=== PATIENT | female | born 1985 | race Caucasian/White ===

== ENCOUNTER → 2020-05-03 08:46 | Outpatient (CLI) | payer OTHER, SELFPAY ==
--- NOTE | ~2020-05-03 | MR_ITS ---
EXAMINATION: MR knee RT wo con DATE: 05/03/2020 09:52 INDICATION: Medial right knee pain post twisting injury TECHNIQUE: Magnetic resonance imaging (MRI) of the right knee was performed without intravenous contr ast. Sequences included coronal PD-weighted FSE, coronal PD-weighted FS FSE, sagittal T2-weighted FS E, sagittal PD-weighted FS FSE and axial PD weighted fat saturated FSE. COMPARISON: 10/02/2019 FINDINGS: Medial compartment: Medial meniscus is normal. Articular cartilage is normal. Lateral compartment: Lateral meniscus is normal. Articular cartilage is normal. Patellofemoral compartment: Again seen a sagittally oriented linear low signal at the caudal aspect of the trochlear groove likel y a deep chondral fissure with minimal underlying cortical irregularity and tiny focus of subarticula r edema. Remaining cartilage in the patellofemoral compartment is normal. Ligaments and tendons: Anterior and posterior cruciate ligaments are normal. The medial collateral ligament and fibular michelle ateral ligament complex are normal. The extensor mechanism is normal. The visualized medial and later al hamstring tendons as well as the iliotibial band are normal. Fluid: Physiologic amount of fluid in the joint space. No loose osteochondral bodies identified. 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 Otherwi se normal marrow signal with no fracture or pathologic marrow replacing process. IMPRESSION: 1. No interval change in a likely deep chondral fissure with minimal degenerative subarticular change s at the caudal aspect of the trochlear groove. Otherwise unremarkable right knee MRI with no joint e ffusion and with normal menisci and stabilizing ligaments. Reviewed, dictated and finalized at location A. IMPRESSION: 1. No interval change in a likely deep chondral fissure with minimal degenerati ve subarticular changes at the caudal aspect of the trochlear groove. Otherwise unremarkable right knee MRI with no joint effusion and with normal menisci and stabilizing ligaments.
== END ==
PROVIDERS: PCP Family Medicine
DX: M25.561 Pain in right knee (principal)
CPT/HCPCS: 73721

== ENCOUNTER 2020-09-22 16:56 | Outpatient (RCR) | payer BC, SELFPAY | END 2020-12-21 23:59 | disposition home or self-care (01) | LOC: ANHLAB 16:56 | PROVIDERS: PCP Family Medicine; Visit Provider Obstetrics & Gynecology | DX: O20.0 Threatened abortion (principal); O36.0130 Maternal care for anti-D [Rh] antibodies, third trimester, not applicable or unspecified; Z3A.00 Weeks of gestation of pregnancy not specified | CPT/HCPCS: 36415; 85461 ==

== ENCOUNTER 2021-03-23 07:31 | Outpatient (CLI) | payer BC, SELFPAY ==
--- NOTE | 2021-03-25 12:42 | WPDHOLTEREM ---
Holter/Event Monitor Holter/Event Monitor Date of procedure: 03/23/21 Holter/Event Procedure: 24 Hr Holter Monitor Indications: Tachycardia Conclusion: 1. 24 hour holter monitor on 03/23/21. 2. Underlying rhythm is sinus rhythm. HR range 50-143 bpm; average HR 85 bpm. 3. No premature supraventricular complexes. No supraventricular tachycardia. 4. No premature ventricular complexes. No ventricular tachycardia. 5. No sinoatrial or atrioventricular blocks. No significant pauses greater than 2 seconds. 6. No symptoms available for correlation.
== END 2021-03-23 07:32 | disposition home or self-care (01) ==
LOC: ANHCARD 07:35
PROVIDERS: PCP Nurse Practitioner Family; Visit Provider Obstetrics & Gynecology
DX: R00.0 Tachycardia, unspecified (principal)
CPT/HCPCS: 93225; 93226

== ENCOUNTER 2021-08-11 01:57 | Inpatient (IN) | payer BC, SELFPAY ==
[2021-08-11] VITALS (163 sets, daily range): BP systolic 60–136; BP diastolic 32–102; PULSE 60–134; RESP 16; TEMP 36.8–37.2; O2SAT 98–100; BMI 27.7
--- NOTE | 2021-08-11 01:57 | LDADM ---
This patient, Albertina Flores, was admitted to Labor/Delivery/Recovery 105 on 08/11/21 at 01:57. Plans for labor, pain management and were discussed with patient. Patient/family oriented to hospital policies and general routines including ID bracelet, bed and alarms, visiting hours, pain management, procedures, bathroom and other care routines, personal items, smoking policy, room service/diet and guest tray routines, security routines, and visiting hours. Patient/Family are encouraged to report perceived risks to care and to ask questions if they do not understand what they are told or what they should do. See OBIX for further documentation.
--- OUTSIDE RECORDS SUMMARY | 2021-08-11 02:08 | XMS_ITS | Encounter Summary ---
:1985 Author Care Team Providers Name Role Phone Demetria Dukes [facility] Primary Care Provider [phone] Reason for Visit None recorded. Assessment and Plan 1. Uterine size for dates discre pancy ? US, obstetric, follow-up Discussion Note: None recorded.Patient educational handouts: No information available. Plan of Care Reminders Provider Appointments Well on or around Katherin Olimpia Gill, Woman-est 10/29/2021 CNM Lab None ? ? recorded. Referral None ? ? recorded. Procedures None ? ? recorded. Surgeries None ? ? recorded. Imaging US, 05/25/2021 [place] Obstetric, Follow-up Medications Name Start Date ? ? Claritin ? ? Medications Administered None recorded. Vitals None recorded. Results Lab Results None recorded. Allergies Code Code System Name Reaction Severity Onset NKDA ? ? ? Notes: NO KNOWN ALLERGIES (Activ e) Comment: Location: [facility]; Problems Name Status Onset Date Source ? 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
--- OUTSIDE RECORDS SUMMARY | 2021-08-11 02:08 | XMS_ITS | Encounter Summary ---
:1985 Author Care Team Providers Name Role Phone Demetria Dukes [facility] Primary Care Provider [phone] Reason for Visit OB visit OB [id number] EDC 08/04/2021 LMP 10/28/2020 Assessment and Plan Assessment Note Patient is __32_weeks . Dis cussed plan. 1. Routine care Discussion Note: None recorded.Patient educational handouts: No information available. Plan of Care Reminders Provider Appointments Well on or around Katherin Gill, Woman-est 10/29/2021 CNM Lab None ? ? recorded. Referral None ? ? recorded. Procedures None ? ? recorded. Surgeries None ? ? recorded. Imaging None ? ? recorded. Medications Name Start Date ? ? Claritin ? ? Medications Administered None recorded. Vitals Height Weight BMI Blood Pressure 5 ft 5.5 in 160 lbs 26.2 kg/m2 118/72 mm[Hg] Results Lab Results None recorded. Allergies Code Code System Name Reaction Severity Onset NKDA ? ? ? Notes: NO KNOWN ALLERGIES (Activ e) Comment: Location: [facility]; Problems
--- OUTSIDE RECORDS SUMMARY | 2021-08-11 02:08 | XMS_ITS | Encounter Summary ---
:1985 Author Care Team Providers Name Role Phone Demetria Dukes [facility] Primary Care Provider [phone] Reason for Visit OB visit Assessment and Plan Assessment Note Patient is ___weeks . Discu ssed plan. 1. Routine care Discussion Note: None recorded.Patient educational handouts: No information available. Plan of Care Reminders Provider Appointments Well on or around Katherin Camarenagle, Woman-est 10/29/2021 CNM Lab None ? ? recorded. Referral None ? ? recorded. Procedures None ? ? recorded. Surgeries None ? ? recorded. Imaging None ? ? recorded. Medications Name Start Date ? ? Claritin ? ? Medications Administered None recorded. Vitals Height Weight BMI Blood Pressure 5 ft 5.5 in 164 lbs 26.9 kg/m2 108/71 mm[Hg] Results Lab Results None recorded. Allergies Code Code System Name Reaction Severity Onset NKDA ? ? ? Notes: NO KNOWN ALLERGIES (Activ e) Comment: Location: [facility]; Problems Name Status Onset Date Source ?
--- OUTSIDE RECORDS SUMMARY | 2021-08-11 02:08 | XMS_ITS | Encounter Summary ---
:1985 Author Care Team Providers Name Role Phone Demetria Dukes [facility] Primary Care Provider [phone] Reason for Visit OB visit OB [id number] EDC 08/04/2021 LMP 10/28/2020 Assessment and Plan Assessment Note Patient is __40_weeks . Dis cussed plan. 1. Routine care [...] BMI Blood Pressure 5 ft 5.5 in 170 lbs 27.9 kg/m2 119/53 mm[Hg] Results Lab Results None recorded. Allergies Code Code System Name Reaction Severity Onset NKDA ? ? ? Notes: NO KNOWN ALLERGIES (Activ e) Comment: Location: [facility]; Problems
--- OUTSIDE RECORDS SUMMARY | 2021-08-11 02:08 | XMS_ITS | Encounter Summary ---
:1985 Author Care Team Providers Name Role Phone Demetria Dukes [facility] Primary Care Provider [phone] Reason for Visit OB visit OB [id number] EDC 08/04/2021 LMP 10/28/2020 Assessment and Plan Assessment Note Patient is _39__weeks . Dis cussed plan. 1. Routine care [...] BMI Blood Pressure 5 ft 5.5 in 169 lbs 27.7 kg/m2 119/76 mm[Hg] Results Lab Results None recorded. Allergies Code Code System Name Reaction Severity Onset NKDA ? ? ? Notes: NO KNOWN ALLERGIES (Activ e) Comment: Location: [facility]; Problems
--- OUTSIDE RECORDS SUMMARY | 2021-08-11 02:08 | XMS_ITS | Encounter Summary ---
:1985 Author Care Team Providers Name Role Phone Demetria Dukes [facility] Primary Care Provider [phone] Reason for Visit OB visit OB [id number] EDC 08/04/2021 LMP 10/28/2020 Assessment and Plan Assessment Note Patient is _36__weeks . Dis cussed plan. 1. Routine care [...] BMI Blood Pressure 5 ft 5.5 in 167 lbs 27.4 kg/m2 107/73 mm[Hg] Results Lab Results None recorded. Allergies Code Code System Name Reaction Severity Onset NKDA ? ? ? Notes: NO KNOWN ALLERGIES (Activ e) Comment: Location: [facility]; Problems
--- OUTSIDE RECORDS SUMMARY | 2021-08-11 02:08 | XMS_ITS | Encounter Summary ---
:1985 Author Care Team Providers Name Role Phone Demetria Dukes [facility] Primary Care Provider [phone] Reason for Visit OB visit OB [id number] EDC 08/04/2021 LMP 10/28/2020 Assessment and Plan Assessment Note Patient is __28_weeks . Dis cussed plan. 1. Routine care [...] BMI Blood Pressure 5 ft 5.5 in 154 lbs 25.2 kg/m2 110/71 mm[Hg] Results Lab Results None recorded. Allergies Code Code System Name Reaction Severity Onset NKDA ? ? ? Notes: NO KNOWN ALLERGIES (Activ e) Comment: Location: [facility]; Problems
--- OUTSIDE RECORDS SUMMARY | 2021-08-11 02:08 | XMS_ITS | Encounter Summary ---
:1985 Author Care Team Providers Name Role Phone Demetria Dukes [facility] Primary Care Provider [phone] Reason for Visit OB visit [id number] Assessment and Plan Assessment Note Patient is [...] ft 5.5 in 169 lbs 27.7 kg/m2 122/70 mm[Hg] Results Lab Results None recorded. Allergies Code Code System Name Reaction Severity Onset NKDA ? ? ? Notes: NO KNOWN ALLERGIES (Activ e) Comment: Location: [facility]; Problems Name Status Onset
--- OUTSIDE RECORDS SUMMARY | 2021-08-11 02:08 | XMS_ITS | Encounter Summary ---
:1985 Author Care Team Providers Name Role Phone Demetria Dukes [facility] Primary Care Provider [phone] Reason for Visit None recorded. Assessment and Plan 1. Reduced movement ? non-stress test Discussion Note: None recorded.Patient educational handouts: No information available. Plan of Care Reminders Provider Appointments Well on or around Katherin Gill, Woman-est 10/29/2021 CNM Lab None ? ? recorded. Referral None ? ? recorded. Procedures None ? ? recorded. Surgeries None ? ? recorded. Imaging 05/13/2021 [place] Non-stress Test Medications Name Start Date ? ? Claritin ? ? Medications Administered None recorded. Vitals None recorded. Results Lab Results None recorded. Allergies Code Code System Name Reaction Severity Onset NKDA ? ? ? Notes: NO KNOWN ALLERGIES (Activ e) Comment: Location: [facility]; Problems Name Status Onset Date Source ? Human Papillomavirus Deoxyribonucleic Active 10/11/2019 History Acid Sunitha
--- OUTSIDE RECORDS SUMMARY | 2021-08-11 02:08 | XMS_ITS | Encounter Summary ---
:1985 Author Care Team Providers Name Role Phone Demetria Dukes [facility] Primary Care Provider [phone] Reason for Visit None recorded. Assessment and Plan 1. Post-term ? non-stress test Discussion Note: None recorded.Patient educational handouts: No information available. Plan of Care Reminders Provider Appointments Well on or around Katherin Gill, Woman-est 10/29/2021 CNM Lab None ? ? recorded. Referral None ? ? recorded. Procedures None ? ? recorded. Surgeries None ? ? recorded. Imaging 08/05/2021 [place] Non-stress Test Medications Name Start Date ? ? Claritin ? ? Medications Administered None recorded. Vitals None recorded. Results Lab Results None recorded. Allergies Code Code System Name Reaction Severity Onset NKDA ? ? ? Notes: NO KNOWN ALLERGIES (Activ e) Comment: Location: [facility]; Problems Name Status Onset Date Source ? Human Papillomavirus Deoxyribonucleic Active 10/11/2019 History Acid Test P
--- OUTSIDE RECORDS SUMMARY | 2021-08-11 02:08 | XMS_ITS ---
:1985 Author Care Team Providers Name Role Phone OSMAR BLAKE [facility]- Primary Care Provider [phone] Allergies Code Code System Name Reaction Severity Status Onset NKDA ? Notes: NO KNOWN ALLERGIES (Activ e) Comment: Location: [facility]; Medications Name Status Start Date Stop Date ? ? amitriptyline hydrochloride 25 Completed ? 02/25/2020 mg tabs azithromycin 500 mg tabs Completed ? 2019 Claritin Active ? Not available clindamycin 1.2 % (1 % base)-benzoyl peroxide 5 % topical gel Co mpleted ? 07/10/2021 APPLY TOPICALLY TO THE AFFECTED AREA DAILY TO FACE DAILY doxycycline hyclate 100 mg tabs Completed ? 02/25/2020Februaryl fe tab 10/01 Completed ? 02/25/2020 FE 10/01 (28) 1 mg-20 mcg (21)/75 mg (7) tablet Completed 10/11/2019 10/28/2020 take 1 tablet by oral route every day ketoconazole 2 % topical cream Completed ? APPLY TOPICALLY TO THE AFFECTED AREA TW ICE DAILY 2 TIMES DAILY NEEDED TO THE CHEST AND THIGHS metoclopramide 5 mg tablet Completed ? 12/31 TAKE 1 TABLET BY MOUTH EVERY 4 TO 6 HOURS NEEDED nitrofurantoin Completed ? 02/25/2020 monohydrate/macrocry stals 100 mg caps ondansetron HCl 4 mg tablet Completed ? 01/10 TAKE 1 TABLET BY MOUTH EVERY 4 TO 6 HOURS NEEDED Active ? Not available prochlorperazine maleate 10 mg tablet Completed ? 01/22
--- OUTSIDE RECORDS SUMMARY | 2021-08-11 02:08 | XMS_ITS | Encounter Summary ---
:1985 Author Care Team Providers Name Role Phone Demetria Dukes [facility] Primary Care Provider [phone] Reason for Visit OB visit Assessment and Plan Assessment Note Patient is ___weeks . Discu ssed plan. Discussion Note: None recorded.Patient educational handouts: No information available. Plan of Care Reminders Provider Appointments Well on or around Katherin Doan Jairo, Woman-est 10/29/2021 CNM Lab None ? ? recorded. Referral None ? ? recorded. Procedures None ? ? recorded. Surgeries None ? ? recorded. Imaging None ? ? recorded. Medications Name Start Date ? ? Claritin ? ? Medications Administered None recorded. Vitals Height Weight BMI Blood Pressure 5 ft 5.5 in 157 lbs 25.7 kg/m2 105/71 mm[Hg] Results Lab Results None recorded. Allergies Code Code System Name Reaction Severity Onset NKDA ? ? ? Notes: NO KNOWN ALLERGIES (Activ e) Comment: Location: [facility]; Problems Name Status Onset Date Source ? Human Papillom
--- OUTSIDE RECORDS SUMMARY | 2021-08-11 02:08 | XMS_ITS | Encounter Summary ---
:1985 Author Care Team Providers Name Role Phone Demetria Dukes [facility] Primary Care Provider [phone] Reason for Visit OB visit OB [id number] EDC 08/04/2021 LMP 10/28/2020 Assessment and Plan Assessment Note Patient is __37_weeks . Dis cussed plan. 1. Routine care [...] BMI Blood Pressure 5 ft 5.5 in 168 lbs 27.5 kg/m2 109/72 mm[Hg] Results Lab Results None recorded. Allergies Code Code System Name Reaction Severity Onset NKDA ? ? ? Notes: NO KNOWN ALLERGIES (Activ e) Comment: Location: [facility]; Problems
[2021-08-11 02:43] LABS: Basophils Percent Auto 0.2 % (0.2-1.2); Eosinophils Absolute Auto 0.1 K/mm3 (0-0.3); Eosinophils Percent Auto 0.7 % (0-4.4); Hematocrit 34.4 % (37.0-47.0); Hemoglobin 11.8 g/dL (12.0-15.0); Immature Granulocyte Absolute 0.11 K/mm3 (0.00-0.031); Immature Granulocyte Percent A 0.8 % (0-0.5); Lymphocytes Percent Auto 17.9 % (18.3-44.2); Mean Corpuscular HGB Conc 34.3 g/dl (32-36); Mean Corpuscular Hemoglobin 32.2 pg (26-34); Mean Platelet Volume 10.5 fl (7.4-10.4); Monocytes Absolute Auto 0.8 K/mm3 (0.1-0.6); Monocytes Percent Auto 6.3 % (2.6-8.5); Neutrophils Absolute Auto 9.9 K/mm3 (1.3-6.7); Neutrophils Percent Auto 74.1 % (45.5-73.1); Platelet Count Result 262 k/mm3 (150-375); Red Blood Count 3.66 M/mm3 (4.2-5.4); Red Cell Distribution Width 12.9 % (11.5-14.5); White Blood Count 13.4 K/mm3 (4.5-10.0)
[2021-08-11] MEDS: LACTATED RINGERS 1,000 ML 125 ML IV CONT ×2 (06:00→07:57)
[2021-08-11] MEDS: OXYTOCIN 30 UNITS/NS 500 ML 30 UNITS/500 ML BAG 6 UNITS IV CONT (06:00)
--- NOTE | 2021-08-11 08:12 | WPDANESEPPF ---
Anes - Initial Pre Proc Eval Procedure: labor epidural Date/Time: 08/11/21 08:12 Surgeon: Alfonso Bullard MD Pre Op Diagnosis: labor pain Pre Op Diagnosis: Labor Patient Data Age: 35 Gender: F Height: 1.68 m Weight: 78 kg Last Vital Signs Temp 37.0 C 08/11/21 07:37 Pulse 70 08/11/21 08:10 BP 115/79 08/11/21 08:10 Pulse Ox 99 08/11/21 08:11 Allergies Allergy/AdvReac Type Severity Reaction Status Date / Time No Known Allergies Allergy Verified 07/04/21 12:51 Home Medications Medication Instructions Recorded Confirmed Type vit 168-iron 27 mg-folic 1 cap PO DAILY 04/22/21 08/11/21 History acid 800 mcg-omega3 235 mg capsule Laboratory Tests 08/11/21 08/11/21 08/11/21 02:36 02:36 02:36 WBC 13.4 K/mm3 H K/mm3 (4.5-10.0) RBC 3.66 M/mm3 L M/mm3 (4.2-5.4) Hgb 11.8 g/dL L g/dL (12.0-15.0) Hct 34.4 % L % (37.0-47.0) MCV 94.0 fl fl (80-100) MCH 32.2 pg pg (26-34) MCHC 34.3 g/dl g/dl (32-36) RDW 12.9 % % (11.5-14.5) Plt Count 262 k/mm3 k/mm3 (150-375) MPV 10.5 fl H fl (7.4-10.4) Immature Gran % (Auto) 0.8 % H % (0-0.5) Neut % (Auto) 74.1 % H % (45.5-73.1) Lymph % (Auto) 17.9 % L % (18.3-44.2) Pender % (Auto) 6.3 % % (2.6-8.5) Eos % (Auto) 0.7 % % (0-4.4) Baso % (Auto) 0.2 % % (0.2-1.2) Lymph # (Auto) 2.40 K/mm3 K/mm3 (0.9-3.2) Pender # (Auto) 0.8 K/mm3 H K/mm3 (0.1-0.6) Eos # (Auto) 0.1 K/mm3 K/mm3 (0-0.3) Baso # (Auto) 0.0 K/mm3 K/mm3 (0.0-0.1) Abs Immat Gran (auto) 0.11 K/mm3 H K/mm3 (0.00-0.031) Absolute Neuts (auto) 9.9 K/mm3 H K/mm3 (1.3-6.7) Absolute Nucleated RBC 0.0 K/mm3 K/mm3 (0.0-0.012) Nucleated RBC % 0.0 % % (0.0-0.2) RPR Pending Blood Type O Positive Antibody Screen Negative Patient hx anesthesia problems: none Family hx anesthesia problems: none Results Review: All pre-operative results and documents have been reviewed as part of the pre-operative evaluation. [facility] Past Medical History Medical History (Updated 04/22/21 @ 15:02 by Eladio Lizarraga DO) Allergies Family History Family History (Updated 07/04/21 @ 12:52 by Rafi Stephens RN) Other No pertinent family history Social History Social History (Updated 04/22/21 @ 14:46 by Rose Max CMA) Years smoked: 15 Smoking status: Former smoker Alcohol intake: never Substance use: never Spiritual care concerns: No Anes - Eval Final PreProcedure Day of Procedure 08/11/21 08:12 Patient weight: overweight ASA classification: II Emergent: no Anesthetic plan: proceed Anesthesia type and monitoring: regional epidural and standard monitoring Results Review: All pre-operative results and documents have been reviewed as part of the pre-operative evaluation. Informed Consent: The patient's anesthetic plan and its attendant risks and benefits were discussed with the patient/family/POA. Questions were solicited and answers provided to the satisfaction of the patient/family/POA.
[2021-08-11 08:38] LABS: Rapid Plasma Reagin Non-Reactive (NonReactive)
[2021-08-11] MEDS: miSOPROStol 200 MCG TABLET 800 MCG (12:50)
[2021-08-11] MEDS: miSOPROStol 200 MCG TABLET 800 MCG RECTAL (12:50)
[2021-08-11] MEDS: METHYLERGONOVINE MALEATE 0.2 MG/ML VIAL IM (12:58)
[2021-08-11] MEDS: OXYTOCIN 30 UNITS/NS 500 ML 30 UNITS/500 ML BAG 125 UNITS IV CONT (13:15)
--- NOTE | 2021-08-11 13:18 | PM.OBPRVD ---
OB - Delivery Note Procedure Delivery date: 08/11/21 Procedure: vaginal delivery Intrapartal events: None Induction method: none Delivery augmentation: pitocin Delivery monitor: external FHT and external uterine Route of delivery: Episiotomy description: None Laceration Description: Vaginal - 1st Degree Delivery repair: vicryl Specimen: No Quantitative Blood Loss (ml): 835 Anesthesia type: Epidural Disposition: floor Baby Date of : 08/11/21 Time of : 12:37 Weeks of gestation at delivery: 41 Infant gender: Female Weight (pounds): 8 Weight (ounces): 3 presentation: vertex position: Left Occiput Anterior Placenta delivery description: Spontaneous and Manual Removal cord vessel description: 3 Vessels, Nuchal Cord, Loose, Reduced, Around Body x1 and Delayed Cord Clamping score one minute: 8 score five minutes: 8 Narrative: fundus not firm after delivery of placenta and fundal massage, manual exploration of uterus and placental tissue removed, cytotec 1000mcg and methergine with still boggy uterus, bakri placed without difficulty, Pt vss and pain well managed, Dr hunter notified and QBL 835.
[2021-08-11] MEDS: ACETAMINOPHEN 500 MG TABLET 1000 MG PO (13:30)
[2021-08-11] MEDS: AMPICILLIN 2 GM/NS 100 ML 2 GM/100 ML BAG IVPB (13:47)
[2021-08-11] MEDS: IBUPROFEN 600 MG TABLET (16:36)
[2021-08-11] MEDS: METHYLERGONOVINE MALEATE 0.2 MG/ML VIAL (16:58)
[2021-08-11 17:08] LABS: Hematocrit 30.7 % (37.0-47.0); Hemoglobin 10.3 g/dL (12.0-15.0); Mean Corpuscular HGB Conc 33.6 g/dl (32-36); Mean Corpuscular Hemoglobin 31.7 pg (26-34); Mean Corpuscular Volume 94.5 fl (80-100); Mean Platelet Volume 10.2 fl (7.4-10.4); Platelet Count Result 215 k/mm3 (150-375); Red Blood Count 3.25 M/mm3 (4.2-5.4); Red Cell Distribution Width 12.9 % (11.5-14.5); White Blood Count 24.8 K/mm3 (4.5-10.0)
--- NOTE | 2021-08-11 17:53 | OBPPTRN ---
1753 Patient transferred to post room #280 via W/C. Support person present. Oriented to unit, room, information board, rooming in, admission packet and security measures. Patient verbalizes understanding.
[2021-08-11] MEDS: ACETAMINOPHEN 325 MG TABLET 650 MG PO (19:22)
[2021-08-12 01:00] VITALS: BP 104/69; PULSE 71; RESP 16; TEMP 37
[2021-08-12] MEDS: IBUPROFEN 600 MG TABLET PO ×3 (01:31→16:37)
[2021-08-12 03:20] VITALS: BP 101/62; PULSE 64; RESP 16; TEMP 36.5
[2021-08-12 04:25] LABS: Hematocrit 26.6 % (37.0-47.0)
--- NOTE | 2021-08-12 07:55 | P.PNOB_ITS ---
OB - PN: Subj Subjective Date/time seen: 08/12/21 07:55 Patient comments: no complaints baby status: doing well [place] feeding status: breast and bottle feeding OB - PN: Obj Data Labs CBC & Chem 7: 08/12/21 03:27 Labs: Laboratory Results - last 24 hr 08/11/21 08/11/21 08/12/21 02:36 17:02 03:27 WBC 24.8 H RBC 3.25 L Hgb 10.3 L 9.0 L Hct 30.7 L 26.6 L MCV 94.5 MCH 31.7 MCHC 33.6 RDW 12.9 Plt Count 215 MPV 10.2 RPR Non-reactive OB - PN A/P Plan day: 1 Plan: routine care Time Spent With Patient Time: Total time spent is greater than 50% in coordination of care (as documented) at patient's floor/unit and/or counseling patient: Review of Systems Review of Systems: All systems reviewed & are unremarkable except as noted in HPI and below Exam Narrative: bakri deflated 350cc out and removed without difficulty Const: General: cooperative, healthy appearing, no acute distress and awake
[2021-08-12] MEDS: BENZOCAINE 20% AER SPR (*SP) 56 GM CAN 1 SPRAY TOPICAL (08:03)
[2021-08-12] MEDS: WITCH HAZEL 40 PADS 1 PAD TOPICAL (08:03)
[2021-08-12] MEDS: POLYSACCHARIDE IRON COMPLEX 150 MG CAPSULE PO ×2 (08:07→16:37)
[2021-08-12] MEDS: DOCUSATE SODIUM 100 MG CAPSULE PO ×2 (08:07→16:37)
[2021-08-12] MEDS: MULTIVIT/MIN/PREN/FOL AC/IRON TABLET 1 TAB PO (08:07)
[2021-08-12 08:10] VITALS: BP 113/69; PULSE 84; RESP 18; TEMP 37.3; O2SAT 100
--- NOTE | 2021-08-12 10:16 | PC.NURSE ---
0745 Megan DICKSON here to remove Bakri. Attempted multiple times and could not remove fluid from the bakri balloon. Dr. Smiley was called and she came at 0800 she had to cut the catheter to the Bakri and then 350cc of clear fluid was removed from the balloon . 125cc of bloody fluid was removed from the catheter bag of the Bakri. There was a small amount of blood on her robyn pad. Resting in bed now.
--- NOTE | 2021-08-12 10:17 | WPDANLDPN2 ---
Anes-Prog Note L&D Date/Time: 08/12/21 10:17 Comfortable throughout: labor and delivery Neuraxial method: epidural Epidural/Spinal procedure site: clean & non-tender Neuro status: Neuro function grossly intact. Cardiovascular status: normal Respiratory status: normal Airway patency: baseline Mental status: baseline Post-Op hydration status: normal Vital Signs: Last Vital Signs Temp 99.2 F 08/12/21 08:10 Pulse 84 08/12/21 08:10 Resp 18 08/12/21 08:10 BP 113/69 08/12/21 08:10 Pulse Ox 100 08/12/21 08:10 Pain score (VAS): 0 I/O: Intake & Output 08/11/21 08/12/21 08/12/21 23:59 07:59 15:59 Output Total 835 Balance -835 Post-procedural complaints: none Patient feedback: Patient satisfied with anesthetic care.
[2021-08-12 11:44] VITALS: BP 107/62; PULSE 92; RESP 16; TEMP 36.8; O2SAT 100
--- NOTE | 2021-08-12 14:20 | PC.NURSE ---
Mother called out for assist with feeding, reporting tenderness with latch. is able to freely thrust tongue past gum ridge and flange both lips. Skin is intact on both nipples, no redness and bruising noted. Discussed mother's HX of large QBL and how this may impact milk supply. Advised mother to continue to put infant to breast each feeding and will nursing effectively pumping is not warranted at this time. Infant nursing should be adequate stimulation. Reviewed feeding cues, frequencies, duration of feedings, feeding elimination flow sheet, and signs of adequate intake. Demonstrated stimulation techniques to wake infant for feeding. Assisted with infant to breast. Reviewed positioning/alignment in cross cradle, holding breast in ?U? hold and guided asymmetrical latch on. Reviewed rational for each. able to latch correctly within a few attempts. nursed eagerly with steady draws and occasional swallowing noted,followed with long pausing. Mother reports infant is sleepy this feeding and has been more eager with nursing other feedings. Reviewed signs of a correct latch, effective nursing and suck swallow ratio. Suggested mother stimulate while feeding to increase stimulation for milk supply, for increased intake and to assist with maintaining deep latch. would slip to shallow latch causing tenderness. Demonstrated how to adjust latch more deeply while feeding as needed. Mother reports she can feel the difference in latch with less tenderness. Nipple care reviewed of lanolin after feedings, warm compresses as needed. Instructed mother to call out for RN assistance if she is unable to latch infant for feeding or she has discomfort with nursing. Instructed feeding should be initiated three hours from start of last feeding or if feeding cues are noted before. Mother voiced understanding of information shared.
[2021-08-12 18:40] VITALS: BP 103/64; PULSE 73; RESP 18; TEMP 36.6
[2021-08-12] MEDS: ACETAMINOPHEN 325 MG TABLET 650 MG PO (22:12)
--- NOTE | 2021-08-13 05:20 | P.PNOB_ITS ---
OB - PN: Subj Subjective Date/time seen: 08/13/21 05:20 Patient comments: no complaints baby status: doing well OB - PN: Obj Data Labs CBC & Chem 7: 08/12/21 03:27 OB - PN A/P Plan day: 2 Plan: routine care and discharge home Time Spent With Patient Time: Total time spent is greater than 50% in coordination of care (as documented) at patient's floor/unit and/or counseling patient: Review of Systems Review of Systems: All systems reviewed & are unremarkable except as noted in HPI and below Exam Const: General: cooperative, healthy appearing, comfortable and no acute dis tress
--- NOTE | 2021-08-13 05:22 | PM.OBDSVD ---
DS: Admitting Diagnosis Discharge Date 08/13/21 Admitting Diagnosis labor OB - DS: Summary OB Procedures : None OB Procedures Intrapartum: Spontaneous Vag Delivery OB Procedures: : Other (bakri) Time Spent with Patient Time attestation: Total time spent providing and/or coordinating discharge services: Discharge Plan Discharge Attending physician on discharge: Alfonso Bullard Discharging Clinician: Katherin Gill Patient Disposition: Home, Self-Care Activity: pelvic rest Diet: regular Patient Instructions: Antibiotic Form Stand Alone Forms: General Discharge Information Follow-up/Referrals: Katherin Gill, BRIANAM [Certified Nurse Reference Test Clerk] - 4 Weeks Discharge Medications: New polysaccharide iron complex 150 mg iron Capsule 150 mg PO BIDWM Qty: 60 RF: 0 Continued One-A-Day -1 27 mg iron- 800 mcg-235 mg capsule 1 cap PO DAILY RF: 0 Date of admission: 08/11/21 01:57 Primary Care Provider: ErnstDemetria Admitting Provider: Alfonso Bullard Attending physician on admission: Alfonso Bullard Condition: Stable
[2021-08-13 07:50] VITALS: BP 91/53; PULSE 78; RESP 16; TEMP 36.8; O2SAT 99
[2021-08-13] MEDS: DOCUSATE SODIUM 100 MG CAPSULE PO (09:52)
[2021-08-13] MEDS: IBUPROFEN 600 MG TABLET PO (09:52)
[2021-08-13] MEDS: POLYSACCHARIDE IRON COMPLEX 150 MG CAPSULE PO (09:52)
[2021-08-13] MEDS: MULTIVIT/MIN/PREN/FOL AC/IRON TABLET 1 TAB PO (09:52)
[2021-08-14 10:36] VITALS: BP 98/68; PULSE 115; RESP 20; TEMP 36.8; O2SAT 99
== END 2021-08-13 12:44 | disposition home or self-care (01) | DRG 768 ==
LOC: ANHLDR 02:05 → ANHOB2 17:57
PROVIDERS: Admitting Provider Obstetrics & Gynecology; PCP Nurse Practitioner Family; Referring Provider Advanced Practice Midwife; Visit Provider Obstetrics & Gynecology
DX: O69.82X0 Labor and delivery complicated by other cord entanglement, without compression, not applicable or unspecified (principal); Z37.0 Single live birth; Z3A.41 41 weeks gestation of pregnancy; O36.8330 Maternal care for abnormalities of the fetal heart rate or rhythm, third trimester, not applicable or unspecified; O70.0 First degree perineal laceration during delivery; O90.89 Other complications of the puerperium, not elsewhere classified; N85.8 Other specified noninflammatory disorders of uterus
CPT/HCPCS: 36415; 84112; 85014; 85018; 85025; 85027; 86592; 86850; 86900; 86901; A9270; J0290; J2210; J2590; J2795; J7120

== ENCOUNTER 2021-09-28 13:23 | Outpatient (CLI) | payer BC, SELFPAY ==
--- NOTE | ~2021-09-28 | US_ITS ---
US breast LT limited 09/28/2021 14:00 Indication: Patient breast-feeding. Palpable left breast lump for one week. Procedure: High-resolution Limited ultrasound of the left breast Comparison: No prior studies for comparison. Findings: In the area of palpable concern in the left breast at 1:00, 4 cm from the nipple, there is a complex cyst measuring 2.8 x 2.6 x 2.4 cm with internal debris and nodularity of the wall, likely b enign. Impression: 1: Probable benign 2.8 cm left breast mass at 1:00, 4 cm from the nipple. BI-RADS CATEGORY 3-PROBABLY BENIGN FINDING RECOMMENDATION: Six-month follow-up Limited left breast ultrasound Reviewed, dictated and finalized at location B. MATERIAL PLANNER Impression: 1: Probable benign 2.8 cm left breast mass at 1:00, 4 cm from the nipple. BI-RADS CATEGORY 3-PROBABLY BENIGN FINDING RECOMMENDATION: Six-month follow-up Limited left breast ultrasound
== END 2021-09-28 13:24 | disposition home or self-care (01) ==
PROVIDERS: PCP Nurse Practitioner Family; Visit Provider Advanced Practice Midwife
DX: N63.20 Unspecified lump in the left breast, unspecified quadrant (principal); R92.8 Other abnormal and inconclusive findings on diagnostic imaging of breast
CPT/HCPCS: 76642

== ENCOUNTER 2022-04-19 09:50 | Outpatient (CLI) | payer BC, SELFPAY | END 2022-04-19 09:51 | disposition home or self-care (01) | LOC: ANHAUDIO 09:51 | PROVIDERS: PCP Nurse Practitioner Family; Visit Provider Nurse Practitioner Family | DX: H90.3 Sensorineural hearing loss, bilateral (principal) | CPT/HCPCS: 92557; 92567 ==

== ENCOUNTER 2023-01-01 13:49 | Emergency (ER) | payer BC, SELFPAY ==
[2023-01-01] VITALS (10 sets, daily range): BP systolic 96–126; BP diastolic 71–74; PULSE 78–99; RESP 11–19; TEMP 36.5; O2SAT 98–100
--- NOTE | ~2023-01-01 | CT_ITS ---
EXAMINATION: CTA chest PE protocol DATE: 01/01/2023 17:35 INDICATION: Chest Pain with deep breath TECHNIQUE: Computed tomography angiography (CTA) of the chest was performed with 100 mL Omnipaque-350 intravenous contrast timed to evaluate the pulmonary arteries. Coronal maximum intensity projection 3D-reconstructions were created by the technologist. The dose-length product (DLP) was 430.97 mGy-cm. Automated exposure control and iterative reconstruction technique were employed. COMPARISON: X-ray chest, same date. FINDINGS: Lung parenchyma and airways: Mild dependent atelectasis. Pleura: Unremarkable. Thoracic inlet, axillae and chest wall: Unremarkable. Thoracic aorta: Normal. Mediastinum: Normal. Heart and pericardium: Normal. Coronary artery calcifications: Absent. Upper abdomen: No significant finding. Bones: No acute osseous finding. Pulmonary arteries: Study quality: Adequate. No pulmonary emboli detected. IMPRESSION: No CT evidence of acute pulmonary embolus. No acute intrathoracic process detected. Reviewed, dictated and finalized at location K. IMPRESSION: No CT evidence of acute pulmonary embolus. No acute intrathoracic process detec lj.
--- NOTE | ~2023-01-01 | XR_ITS ---
EXAMINATION: XR chest 2V DATE: 01/01/2023 14:24 INDICATION: Left-sided chest pain TECHNIQUE: PA and lateral views of the chest are obtained. COMPARISON: None available FINDINGS: There are minimal airspace opacities of the right lung base. No pleural effusion or pneumot horax. The cardiomediastinal silhouette is normal. The visualized bones and soft tissues are unremark able. IMPRESSION: 1. Minimal airspace opacities of the right lung base, consistent with atelectasis versus pneumonia. Reviewed, dictated and finalized at location A. IMPRESSION: 1. Minimal airspace opacities of the right lung base, consistent with atelectas is versus pneumonia.
--- NOTE | 2023-01-01 13:52 | ECG_ITS ---
Measurements Intervals [facility] Rate: 101 P: 65 CO: 161 QRS: 57 QRSD: 83 T: 44 QT: 355 QTc: 462 Interpretive Statements SINUS TACHYCARDIA NONSPECIFIC T-WAVE ABNORMALITY ABNORMAL RHYTHM ECG NO PREVIOUS ECG AVAILABLE FOR COMPARISON Electronically Signed On 01-02-2023 7:41:39 CDT by Donny Diego M.D.
[2023-01-01 14:09] LABS: Basophils Absolute Auto 0.1 K/mm3 (0.0-0.1); Basophils Percent Auto 0.4 % (0.2-1.2); Eosinophils Absolute Auto 0.1 K/mm3 (0-0.3); Eosinophils Percent Auto 0.8 % (0-4.4); Hematocrit 31.6 % (37.0-47.0); Immature Granulocyte Absolute 0.26 K/mm3 (0.00-0.031); Lymphocytes Absolute Auto 2.07 K/mm3 (0.9-3.2); Mean Corpuscular HGB Conc 31.6 g/dl (32-36); Mean Corpuscular Volume 91.6 fl (80-100); Mean Platelet Volume 9.9 fl (7.4-10.4); Monocytes Absolute Auto 0.6 K/mm3 (0.1-0.6); Monocytes Percent Auto 4.9 % (2.6-8.5); Neutrophils Absolute Auto 9.8 K/mm3 (1.3-6.7); Neutrophils Percent Auto 75.9 % (45.5-73.1); Platelet Count Result 266 k/mm3 (150-375); Red Blood Count 3.45 M/mm3 (4.2-5.4); Red Cell Distribution Width 13.2 % (11.5-14.5); White Blood Count 12.9 K/mm3 (4.5-10.0)
[2023-01-01 14:20] LABS: Alanine Aminotransferase 17 U/L (6-35); Albumin Level 3.5 g/dL (3.5-5.1); Alkaline Phosphatase 110 U/L (38-126); Anion Gap 3 mmol/L (8-16); Aspartate Amino Transferase 24 U/L (14-36); Bilirubin,Total 0.3 mg/dL (0.2-1.3); Blood Urea Nitrogen 7 mg/dL (7-17); Calcium 8.4 mg/dL (8.4-10.2); Carbon Dioxide 25 mmol/L (22-30); Chloride 107 mmol/L (98-107); Estimated CRCL calculation 118 ml/min; Estimated Glomerular Filt Rate > 60; Glucose 93 mg/dL (65-110); Lipase 64 U/L (23-300); Potassium 3.7 mmol/L (3.4-5.0); Sodium 135 mmol/L (137-145)
[2023-01-01 14:21] LABS: INR 1.1; Prothrombin Time 13.3 Seconds (11.1-14.7)
[2023-01-01 14:22] LABS: Partial Thromboplastin Time 26.9 SECONDS (22.3-36.8)
[2023-01-01 14:32] LABS: Troponin I < 0.012 ng/mL (0.000-0.034)
[2023-01-01] MEDS: SODIUM CHLORIDE 0.9% IV 500 ML 999 ML IV CONT (16:57)
--- NOTE | 2023-01-01 17:18 | ED.CHESTPAIN ---
HPI - Chest Pain General Chief Complaint: Chest Pain Stated Complaint: CP Time Seen by Provider: 01/01/23 16:25 History of Present Illness HPI narrative: Patient is a 37-year-old female who presents ER with left-sided chest pain. Sudden onset around 1230. It is located in her shoulder and her back and her anterior chest wall. It is worse with coughing and occasional deep breath. No exertional dyspnea. Patient is 34 weeks . She denies injury. She had been carrying her child on that side but did not feel like anything happened to cause any muscle discomfort. Patient reports she is feeling her baby move. No vaginal bleeding. Patient is a SAB 1. Related Data Home Medications Medication Instructions Recorded Confirmed vit 168-iron 27 mg-folic 1 cap PO DAILY 04/22/21 08/11/21 acid 800 mcg-omega3 235 mg capsule (One-A-Day -1) Allergies Allergy/AdvReac Type Severity Reaction Status Date / Time No Known Allergies Allergy Verified 07/04/21 12:51 Review of Systems Review of Systems: All systems reviewed & are unremarkable except as noted in HPI and below Constitutional: Constitutional: Denies chills, Denies fatigue and Denies fever(s) ENT: Denies nasal congestion and Denies sore throat Cardiovascular: Cardiovascular: Reports chest pain, Denies rapid heart rate and Denies radiating jaw, neck or arm pain Respiratory: Respiratory: Denies cough and Denies dyspnea Gastrointestinal: Gastrointestinal: Denies abdominal pain, Denies nausea and Denies vomiting PMFSH Past Medical History Medical History (Updated 01/01/23 @ 18:16 by Jose Rutherford MD) Allergies Family History Family History (Updated 07/04/21 @ 12:52 by Rafi Stephens RN) Other No pertinent family history Social History Social History (Updated 04/22/21 @ 14:46 by Rose Max CMA) Years smoked: 15 Smoking status: Former smoker Alcohol intake: never Substance use: never Spiritual care concerns: No Exam Narrative: GENERAL: Well-appearing, well-nourished, and in no acute distress. HEAD: Normocephalic, atraumatic. ENT: Mucous membranes moist. NECK: Supple. Tender palpation left trapezius with palpable knot that does not reproduce the same pain patient has been experiencing. CHEST: Clear to auscultation. No respiratory distress. HEART: Regular rate and rhythm. Normal peripheral pulses. ABDOMEN: Soft, nontender, uterus palpated above the umbilicus. EXTREMITIES: Normal range of motion. No edema. SKIN: Warm, dry, no rash. NEURO: Alert and oriented x3. PSYCH: Normal mood and affect. Course Course Emergency Course: No evidence of pulmonary embolism. All work otherwise unremarkable. Patient given some fluids. Recommend scheduled Tylenol at home. Symptoms felt to be related to muscle cramps. Patient verbalized understanding and is appropriate for discharge home. Vital Signs Vital signs: Vital Signs Temperature 97.7 F 01/01/23 13:56 Pulse Rate 99 01/01/23 13:56 Respiratory Rate 18 01/01/23 13:56 Blood Pressure 96/71 L 01/01/23 13:56 Pulse Oximetry 100 01/01/23 13:56 Oxygen Delivery Room Air 01/01/23 13:56 Temperature 97.7 F 01/01/23 13:56 Pulse Rate 98 01/01/23 16:36 Respiratory Rate 16 01/01/23 16:36 Blood Pressure 114/73 01/01/23 16:36 Pulse Oximetry 100 01/01/23 16:36 Oxygen Delivery Room Air 01/01/23 13:56 MDM - Chest Pain Lab Data 01/01/23 14:02 01/01/23 14:02 Labs: Lab Results 01/01/23 01/01/23 01/01/23 Range/Units 14:02 14:02 14:02 WBC 12.9 H (4.5-10.0) K/mm3 RBC 3.45 L (4.2-5.4) M/mm3 Hgb 10.0 L (12.0-15.0) g/dL Hct 31.6 L (37.0-47.0) % MCV 91.6 (80-100) fl MCH 29.0 (26-34) pg MCHC 31.6 L (32-36) g/dl RDW 13.2 (11.5-14.5) % Plt Count 266 (150-375) k/mm3 MPV 9.9 (7.4-10.4) fl Immature Gran % (Auto) 2.0 H (0-0.5) % Neut % (Au
[2023-01-01 17:21] LABS: Troponin I < 0.012 ng/mL (0.000-0.034)
== END 2023-01-01 18:23 | disposition home or self-care (01) ==
PROVIDERS: Emergency Provider Emergency Medicine; PCP Nurse Practitioner Family
DX: R07.89 Other chest pain (principal); Z87.891 Personal history of nicotine dependence; R91.8 Other nonspecific abnormal finding of lung field; R00.0 Tachycardia, unspecified; R94.31 Abnormal electrocardiogram [ECG] [EKG]
CPT/HCPCS: 36415; 71046; 71275; 80053; 83690; 84484; 85025; 85610; 85730; 93005; 96360; 99284; J7040; Q9967

== ENCOUNTER 2023-02-12 05:45 | Inpatient (IN) | payer BC, SELFPAY ==
[2023-02-12] VITALS (74 sets, daily range): BP systolic 89–124; BP diastolic 51–82; PULSE 59–118; RESP 16–18; TEMP 36.4–37.2; O2SAT 98–100; BMI 26.7
--- NOTE | 2023-02-12 05:45 | LDADM ---
This patient, Albertina Flores, was admitted to Labor/Delivery/Recovery 108 on 02/12/23 at 05:45. Plans for labor, pain management and were discussed with patient. Patient/family oriented to hospital policies and general routines including ID bracelet, bed and alarms, visiting hours, pain management, procedures, bathroom and other care routines, personal items, smoking policy, room service/diet and guest tray routines, security routines, and visiting hours. Patient/Family are encouraged to report perceived risks to care and to ask questions if they do not understand what they are told or what they should do. See OBIX for further documentation.
[2023-02-12] MEDS: LACTATED RINGERS 1,000 ML 125 ML IV CONT ×3 (06:02→07:41)
[2023-02-12 06:07] LABS: Basophils Percent Auto 0.2 % (0.2-1.2); Eosinophils Absolute Auto 0.1 K/mm3 (0-0.3); Eosinophils Percent Auto 0.6 % (0-4.4); Hemoglobin 11.4 g/dL (12.0-15.0); Immature Granulocyte Absolute 0.09 K/mm3 (0.00-0.031); Immature Granulocyte Percent A 0.7 % (0-0.5); Lymphocytes Absolute Auto 2.15 K/mm3 (0.9-3.2); Lymphocytes Percent Auto 17.4 % (18.3-44.2); Mean Corpuscular HGB Conc 32.6 g/dl (32-36); Mean Corpuscular Hemoglobin 29.5 pg (26-34); Mean Corpuscular Volume 90.7 fl (80-100); Mean Platelet Volume 10.3 fl (7.4-10.4); Monocytes Absolute Auto 0.6 K/mm3 (0.1-0.6); Monocytes Percent Auto 4.5 % (2.6-8.5); Neutrophils Absolute Auto 9.5 K/mm3 (1.3-6.7); Neutrophils Percent Auto 76.6 % (45.5-73.1); Platelet Count Result 256 k/mm3 (150-375); Red Blood Count 3.86 M/mm3 (4.2-5.4); Red Cell Distribution Width 15.8 % (11.5-14.5); White Blood Count 12.4 K/mm3 (4.5-10.0)
--- NOTE | 2023-02-12 06:16 | WPDANESEPPF ---
Anes - Initial Pre Proc Eval Procedure: Labor Epidural Date/Time: 02/12/23 06:16 Surgeon: Alfonso Bullard MD Pre Op Diagnosis: Labor pain Pre Op Diagnosis: CONTRACTIONS Patient Data Age: 37 Gender: F Height: Weight: Last Vital Signs Pulse 88 02/12/23 06:15 BP 122/73 02/12/23 06:15 Allergies Allergy/AdvReac Type Severity Reaction Status Date / Time No Known Allergies Allergy Verified 07/04/21 12:51 Home Medications Medication Instructions Recorded Confirmed Type vit 168-iron 27 mg-folic 1 cap PO DAILY 04/22/21 01/19/23 History acid 800 mcg-omega3 235 mg capsule (One-A-Day -1) polysaccharide iron complex 150 mg 150 mg PO BIDWM #60 caps 08/13/21 01/19/23 Rx iron capsule Laboratory Tests 02/12/23 06:02 WBC 12.4 H K/mm3 (4.5-10.0) RBC 3.86 L M/mm3 (4.2-5.4) Hgb 11.4 L g/dL (12.0-15.0) Hct 35.0 L % (37.0-47.0) MCV 90.7 fl (80-100) MCH 29.5 pg (26-34) MCHC 32.6 g/dl (32-36) RDW 15.8 H % (11.5-14.5) Plt Count 256 k/mm3 (150-375) MPV 10.3 fl (7.4-10.4) Immature Gran % (Auto) 0.7 H % (0-0.5) Neut % (Auto) 76.6 H % (45.5-73.1) Lymph % (Auto) 17.4 L % (18.3-44.2) Kleberg % (Auto) 4.5 % (2.6-8.5) Eos % (Auto) 0.6 % (0-4.4) Baso % (Auto) 0.2 % (0.2-1.2) Lymph # (Auto) 2.15 K/mm3 (0.9-3.2) Kleberg # (Auto) 0.6 K/mm3 (0.1-0.6) Eos # (Auto) 0.1 K/mm3 (0-0.3) Baso # (Auto) 0.0 K/mm3 (0.0-0.1) Abs Immat Gran (auto) 0.09 H K/mm3 (0.00-0.031) Absolute Neuts (auto) 9.5 H K/mm3 (1.3-6.7) Absolute Nucleated RBC 0.0 K/mm3 (0.0-0.012) Nucleated RBC % 0.0 % (0.0-0.2) RPR Pending Patient hx anesthesia problems: none Family hx anesthesia problems: none Results Review: All pre-operative results and documents have been reviewed as part of the pre-operative evaluation. [facility] Past Medical History Medical History Allergies Family History Family History Other No pertinent family history Social History Social History Years smoked: 15 Smoking status: Former smoker Alcohol intake: never Substance use: never Spiritual care concerns: No Anes - Eval Final PreProcedure Day of Procedure 02/12/23 06:16 Patient weight: overweight ASA classification: II Anesthetic plan: proceed Anesthesia type and monitoring: regional epidural and standard monitoring Results Review: All pre-operative results and documents have been reviewed as part of the pre-operative evaluation. Informed Consent: The patient's anesthetic plan and its attendant risks and benefits were discussed with the patient/family/POA. Questions were solicited and answers provided to the satisfaction of the patient/family/POA.
--- NOTE | 2023-02-12 06:23 | WPDOBADMIT ---
Obstetrics - Admit Note Admission Note: record reviewed. No pertinent additions to the history and/or any subsequent changes in the physical findings that are not consistent with the expected course of the were found. Pt arrived in active labor, anticipate vaginal delivery Additions to the history and/or subsequent changes in the physical findings follow. None.
--- NOTE | 2023-02-12 06:43 | WPDANESEPN ---
Anes - Epidural Procedure Note Date/Time: 02/12/23 06:43 Consent: I have discussed with the patient/family/POA, the placement of an epidural catheter and the use of epidural narcotic/local anesthetic for labor analgesia and/or postoperative pain management, including associated potential risks, benefits, complications and side effects. I have discussed alternative methods of labor analgesia and/or postoperative pain management. The patient/family/POA, understand(s) and wish(es) to proceed with epidural narcotic/local anesthetic for labor analgesia and/or postoperative pain management. Time-Out: A pre-procedural Time-Out was completed immediately before starting the procedure and confirmed: Patient Identification, Site, Procedure, Patient Position and the Availability of Requisite Equipment. Clinical Indications: Labor pain Epidural Insertion Note Patient position: sitting Skin prep: chlorhexidine and sterile drape Needle: 18g Tuohy-Schliff Catheter: 20g Unstyleted Technique: Loss of resistance. Level of insertion: L3/4 Catheter skin rishabh (cm): 9 Length in epidural space (cm): 4 Skin anesthesia: lidocaine 1% Test dose: 1.5% Lidocaine with 1:[id number] Epi, negative for subarachnoid Inj and negative for intravascular Inj Time of test dose: 06:27 Observations: tolerated well Complications: none
--- NOTE | 2023-02-12 07:37 | PM.OBPNLAB ---
Pain Control Date/time seen: 02/12/23 07:37 SVE 7-8/90/-2, AROM small amount of clear, odolress fluid, anticipate vaginal delivery
[2023-02-12] MEDS: OXYTOCIN 30 UNITS/NS 500 ML 30 UNITS/500 ML BAG 999 UNITS IV CONT (08:12)
--- NOTE | 2023-02-12 08:36 | PM.OBPRVD ---
OB - Delivery Note Procedure Delivery date: 02/12/23 Procedure: Induction method: None Delivery augmentation: Rupture of Membranes Delivery monitor: External FHT and External Uterine Route of delivery: Specimen: No Quantitative Blood Loss (ml): 90 Anesthesia type: Epidural Disposition: Floor Baby Date of : 02/12/23 Time of : 08:08 Weeks of gestation at delivery: 39 gender: Male Weight (pounds): 8 Weight (ounces): 13 presentation: vertex position: Right Occiput Anterior Placenta delivery description: Manual Removal Cord Vessel Description: 3 Vessels, True Knot, Clamped/Cut and Delayed Cord Clamping score one minute: 8 score five minutes: 9 Narrative: mother and baby skin to skin in stable condition
[2023-02-12] MEDS: OXYTOCIN 30 UNITS/NS 500 ML 30 UNITS/500 ML BAG 125 UNITS IV CONT (08:45)
[2023-02-12] MEDS: IBUPROFEN 600 MG TABLET PO ×2 (09:28→20:57)
--- NOTE | 2023-02-12 10:45 | OBPPTRN ---
Patient transferred to post room # 284 via wheelchair accompanied by and Support person. PT Oriented to unit, room, information board, rooming in, admission packet and security measures. PT introductions made and plan of care discussed per post , pain management, breast feeding, daily care activities. PT and fob both recipients of such instructions and no barriers to learning identified at this time. PT received such instructions per one to one discussion, mom baby care guide and demonstrations this shift. PT verbalized understanding of such care. Patient verbalizes understanding.
[2023-02-12] MEDS: ACETAMINOPHEN 325 MG TABLET 650 MG PO (20:57)
--- NOTE | 2023-02-13 04:37 | PC.NURSE ---
02/13/2023 at 0420 Patient viewed the discharge video Mother & Baby Care, The First Two Weeks . Patient was given the opportunity and encouraged to ask questions. Patient verbalized understanding of information shared and has been given the mother/baby guide for home reference.
[2023-02-13 04:41] LABS: Hematocrit 33.3 % (37.0-47.0); Hemoglobin 10.7 g/dL (12.0-15.0)
[2023-02-13 09:00] VITALS: BP 101/78; PULSE 79; RESP 16; TEMP 36.6; O2SAT 100
[2023-02-13] MEDS: DOCUSATE SODIUM 100 MG CAPSULE PO (09:14)
[2023-02-13] MEDS: MULTIVIT/MIN/PREN/FOL AC/IRON TABLET 1 TAB PO (09:15)
[2023-02-13] MEDS: IBUPROFEN 600 MG TABLET PO (09:15)
--- NOTE | 2023-02-13 09:46 | PM.OBDSVD ---
DS: Admitting Diagnosis Discharge Date January 13, 2023 Admitting Diagnosis term OB - DS: Summary OB Procedures : None OB Procedures Intrapartum: Spontaneous Vag Delivery OB Procedures: : None Time Spent with Patient Time attestation: Total time spent providing and/or coordinating discharge services: DS: Data Data Completed and Pending Labs on day of discharge: Labs from last 24 hours 02/13/23 04:29 Hgb 10.7 L Hct 33.3 L Discharge Plan Discharge Discharging Clinician: Alfonso Bullard Patient Disposition: Home, Self-Care Activity: pelvic rest Diet: regular Patient Instructions: Antibiotic Form Stand Alone Forms: General Discharge Information Follow-up/Referrals: Alfonso Bullard MD [Physician] - Discharge Medications: Continued One-A-Day -1 27 mg iron- 800 mcg-235 mg capsule 1 cap PO DAILY polysaccharide iron complex 150 mg iron Capsule 150 mg PO BIDWM Qty: 60 0RF Date of admission: 02/12/23 05:45 Primary Care Provider: Ernst,Demetria Admitting Provider: Alfonso Bullard Attending physician on admission: Alfonso Bullard Condition: Stable
[2023-02-14 13:15] LABS: Rapid Plasma Reagin Non-Reactive (NonReactive)
[2023-02-14 16:09] VITALS: BP 96/65; PULSE 84; RESP 12; TEMP 36.9; O2SAT 100
== END 2023-02-13 12:58 | disposition home or self-care (01) | DRG 807 ==
LOC: ANHLDR 05:57 → ANHOB2 10:57
PROVIDERS: Advanced Practice Midwife; Admitting Provider Obstetrics & Gynecology; PCP Nurse Practitioner Family; Visit Provider Obstetrics & Gynecology
DX: O69.2XX0 Labor and delivery complicated by other cord entanglement, with compression, not applicable or unspecified (principal); Z37.0 Single live birth; Z3A.39 39 weeks gestation of pregnancy
CPT/HCPCS: 36415; 85014; 85018; 85025; 86592; 86850; 86900; 86901; A9270; J2590; J2795; J7120

== ENCOUNTER → 2023-09-28 08:01 | Outpatient (CLI) | payer BC, SELFPAY ==
--- NOTE | ~2023-09-28 | MR_ITS ---
EXAMINATION: MR brain/brain stem wo/w con DATE: 09/28/2023 08:43 INDICATION: Migraines TECHNIQUE: Magnetic resonance imaging (MRI) of the brain and brainstem was performed without and with 10 mL Multihance intravenous contrast. Sequences included sagittal and axial T1-weighted SE, axial d iffusion-weighted FS SE, axial T2*-weighted GRE, axial T2-weighted FLAIR, and axial T2-weighted FSE. Postcontrast axial and coronal T1-weighted SE was obtained. Apparent diffusion coefficient (ADC) maps were created. COMPARISON: None. FINDINGS: There are no areas of restricted diffusion to suggest acute infarction. No intracranial hemorrhage or abnormal intracranial mass lesion. There are scattered areas of nonspecific increased T2-weighted si gnal intensity in the cerebral white matter, predominantly involving the deep and periventricular whi te matter. There are no intraparenchymal signal abnormalities seen on the other pulse sequences. The ventricles are symmetric and normal in size. There are no abnormal extra-axial fluid collections. Simon w voids are seen in the cerebral arteries on the T2-weighted sequences consistent with their expected patency. Mild mucosal thickening the bilateral ethmoid sinuses. Visualized orbits and soft tissues a re unremarkable. There are no areas of abnormal enhancement on the post contrast images. IMPRESSION: 1. Normal brain. No acute intracranial process or abnormally enhancing brain lesions. Reviewed, dictated and finalized at location A. ICE PHYSICIAN IMPRESSION: 1. Normal brain. No acute intracranial process or abnormally enhancing brain le sions.
== END ==
PROVIDERS: PCP Clinical Nurse Specialist; Visit Provider Clinical Nurse Specialist
DX: G43.909 Migraine, unspecified, not intractable, without status migrainosus (principal)
CPT/HCPCS: 70553; A9577

== ENCOUNTER 2024-01-20 15:12 | Outpatient (CLI) | payer BC, SELFPAY ==
--- NOTE | ~2024-01-20 | XR_ITS ---
XR_[id number]_CR DATE: 01/20/2024 15:24 INDICATION: Neck pain TECHNIQUE: Standing AP, open-mouth and lateral views COMPARISON: None FINDINGS: There is straightening of the cervical spine which may be due to muscle spasm. There is mild loss of interspace height and minimal posterior subluxation of C5-6. The remaining cerv ical disc spaces are well preserved. No fracture or dislocation or locked facet or prevertebral soft tissue swelling. C1 and C2 are normal ly aligned and the odontoid process is intact. IMPRESSION: Straightening of the cervical spine which may be due to muscle spasm Mild degenerative disc disease and minimal posterior subluxation at C5-6 Reviewed, dictated and finalized at Location A. Reviewed, dictated and finalized at location A. IMPRESSION: Straightening of the cervical spine which may be due to muscle spas m Mild degenerative disc disease and minimal posterior subluxation at C5-6
== END 2024-01-20 15:13 ==
LOC: MICIMG 15:14
PROVIDERS: PCP Clinical Nurse Specialist; Visit Provider Clinical Nurse Specialist
DX: M53.82 Other specified dorsopathies, cervical region (principal); M50.322 Other cervical disc degeneration at C5-C6 level; S13.160A Subluxation of C5/C6 cervical vertebrae, initial encounter; X58.XXXA Exposure to other specified factors, initial encounter
CPT/HCPCS: 72040

== ENCOUNTER 2025-04-12 08:06 | Outpatient (CLI) | payer BC, SELFPAY ==
--- NOTE | ~2025-04-12 | MMUS_ITS ---
EXAMINATION: MM diagnostic anuja BI w celestino, US breast BI complete HISTORY: Palpable right breast abnormality TECHNIQUE: Additional 3-D tomosynthesis images of the breasts were performed and synthetic 2-D images were generated. CAD analysis was submitted and interpreted. High resolution bilateral complete breas t ultrasound was performed. COMPARISON: None BREAST PARENCHYMAL COMPOSITION: Dense: The breasts are extremely dense, which lowers the sensitivity of mammography. FINDINGS: MAMMOGRAPHIC FINDINGS: There are no suspicious masses, calcifications or architectural distortion in either breast to sugges t malignancy. ULTRASOUND: Complete US of all 4 quadrants of the breast/s and retroareolar region was reviewed. Right breast: No suspicious masses are identified to suggest malignancy. Left breast: At 11:00, 4 cm from the nipple there is a hypoechoic mass measuring 6 x 5 x 5 mm with sl ightly irregular lateral margins, no internal vascularity. IMPRESSION: 1. Left breast mass at 11:00, 4 cm from the nipple measuring 6 mm. 2. Ultrasound-guided left breast biopsy recommended. BI-RADS category 4, suspicious findings. Reviewed, dictated and finalized at location [] IMPRESSION: 1. Left breast mass at 11:00, 4 cm from the nipple measuring 6 mm. 2. Ultrasound-guided left breast biopsy recommended. BI-RADS category 4, suspicious findings.
== END 2025-04-12 08:07 | disposition home or self-care (01) ==
PROVIDERS: PCP Clinical Nurse Specialist; Visit Provider Nurse Practitioner
DX: N63.11 Unspecified lump in the right breast, upper outer quadrant (principal)
CPT/HCPCS: 76641; 77062; 77066; G0279